=== PATIENT | male | born 1955 | race Caucasian/White ===

== ENCOUNTER 2019-09-08 05:19 | Day surgery (SDC) | payer MEDICAID ==
[~2019-09-08] VITALS: Ht 177.8 cm; Wt 91.6 kg
[2019-09-08] MEDS ORDERED: LACTATED RINGERS 1,000 ML IV SCH (06:30)
[2019-09-08] MEDS ORDERED: LIDOCAINE HCL 1% 20ML VIAL (Pyxis) INJ ONE (07:08)
[2019-09-08] MEDS ORDERED: BUPIVACAINE HCL/PF 0.5% (5MG/ML) 10ML ONE (07:08)
[2019-09-08] MEDS ORDERED: METHYLENE BLUE 50 MG/10 ML AMP IV ONE (07:08)
[2019-09-08] MEDS ORDERED: BACITRACIN 50,000 UNITS/VIAL ONE (07:09)
[2019-09-08] MEDS ORDERED: MIDAZOLAM HCL 2 MG/2 ML VIAL ONE (07:44)
[2019-09-08] MEDS ORDERED: SODIUM CHLORIDE 0.9% 1,000 ML IV ONE (08:28)
[2019-09-08] MEDS ORDERED: HYDROMORPHONE HCL/PF 2MG/ML CPJ IV PRN (08:30)
[2019-09-08] MEDS ORDERED: ONDANSETRON HCL 4MG/2ML INJ IV PRN (08:30)
== END 2019-09-08 14:50 | disposition home or self-care (01) ==
LOC: OR 05:19
PROVIDERS: ATTEND Specialist
DX: K60.3 Anal fistula (principal)
CPT/HCPCS: 46707; J2250; J3490; Q9968

== ENCOUNTER → 2022-10-28 | Outpatient (CLI) | payer MEDICARE, MEDICAID | END | disposition home or self-care (01) | LOC: CT 07:14 | PROVIDERS: ATTEND Internal Medicine Cardiovascular Disease | DX: M50.323 Other cervical disc degeneration at C6-C7 level (principal); M48.02 Spinal stenosis, cervical region; M79.602 Pain in left arm ==